=== PATIENT | male | born 1990 | race African-American/Black ===

== ENCOUNTER 2016-06-21 02:52 | Emergency (ER) | payer SELFPAY ==
[~2016-06-21] VITALS: Ht 167.6 cm; Wt 68.2 kg
[~2016-06-21 02:52] MED LIST: CEPHALEXIN500 M1 PO; FLEXERIL 1010 MG/TAB PO; LORTAB 5/500 501 TAB PO; NAPROSYN500 MG PO; NO HOME MEDICATIONS; NORCO 325 MG-51 TAB PO; TYLENOL W/COD1 UDTAB PO; VOLTAREN 75 DR75 MG PO
[2016-06-21 02:55] VITALS: TEMP 99.8
[2016-06-21] MEDS ORDERED: VOLTAREN 75 DR75 MG PO (04:11)
[2016-06-21] MEDS ORDERED: CEPHALEXIN500 M1 PO (04:11)
[2016-06-21 04:39] VITALS: BP 129/88; PULSE 88
== END 2016-06-21 04:40 | disposition home or self-care (01) ==
LOC: COL.ER 02:52
DX: S61.411A Laceration without foreign body of right hand, initial encounter (principal); Z23 Encounter for immunization; W22.8XXA Striking against or struck by other objects, initial encounter; Y92.414 Local residential or business street as the place of occurrence of the external cause

== ENCOUNTER 2016-06-25 17:33 | Emergency (ER) | payer SELFPAY ==
[~2016-06-25] VITALS: Ht 172.7 cm; Wt 68.2 kg
[2016-06-25 17:36] VITALS: BP 125/82; PULSE 88; TEMP 97.5
== END 2016-06-25 18:20 | disposition home or self-care (01) ==
LOC: COL.ER 17:33
DX: S61.411D Laceration without foreign body of right hand, subsequent encounter (principal)

== ENCOUNTER 2016-07-01 20:50 | Emergency (ER) | payer SELFPAY ==
[2016-07-01 20:58] VITALS: BP 123/86; PULSE 63; TEMP 98.9
== END 2016-07-01 21:06 | disposition home or self-care (01) ==
LOC: COL.ER 20:50
DX: Z48.02 Encounter for removal of sutures (principal)

== ENCOUNTER 2016-11-17 20:08 | Emergency (ER) | payer SELFPAY ==
[~2016-11-17] VITALS: Ht 170.2 cm; Wt 73.6 kg
[2016-11-17 20:10] VITALS: TEMP 97.7
[2016-11-17] MEDS ORDERED: ULTRAM 50MG TAB50 MG PO (20:49)
[2016-11-17 21:00] VITALS: BP 132/90; PULSE 72
== END 2016-11-17 21:09 | disposition home or self-care (01) ==
LOC: COL.ER 20:08
DX: S31.000D Unspecified open wound of lower back and pelvis without penetration into retroperitoneum, subsequent encounter (principal); W39.XXXD Discharge of firework, subsequent encounter

== ENCOUNTER 2019-04-26 13:41 | Emergency (ER) | payer SELFPAY ==
[~2019-04-26] VITALS: Ht 170.2 cm; Wt 71.8 kg
[~2019-04-26 13:41] MED LIST changes: +ULTRAM 50MG TAB50 MG PO
[2019-04-26 13:55] VITALS: BP 118/92; TEMP 97.9
[2019-04-26] MEDS ORDERED: NORCO 325 MG-51 TAB PO (15:45)
[2019-04-26 16:10] VITALS: PULSE 72
== END 2019-04-26 16:15 | disposition home or self-care (01) ==
LOC: COL.ER 13:41
DX: S62.141A Displaced fracture of body of hamate [unciform] bone, right wrist, initial encounter for closed fracture (principal); S62.396A Other fracture of fifth metacarpal bone, right hand, initial encounter for closed fracture; W22.8XXA Striking against or struck by other objects, initial encounter; Y92.009 Unspecified place in unspecified non-institutional (private) residence as the place of occurrence of the external cause
CPT/HCPCS: Q4021

== ENCOUNTER 2019-05-17 17:48 | Emergency (ER) | payer SELFPAY ==
[~2019-05-17] VITALS: Ht 170.2 cm; Wt 72.7 kg
[2019-05-17 18:12] VITALS: BP 134/84; TEMP 98.5
[2019-05-17 19:30] VITALS: PULSE 95
== END 2019-05-17 19:30 | disposition home or self-care (01) ==
LOC: COL.ER 17:48
DX: M25.541 Pain in joints of right hand (principal); G89.18 Other acute postprocedural pain; Y92.009 Unspecified place in unspecified non-institutional (private) residence as the place of occurrence of the external cause
CPT/HCPCS: Q4021

== ENCOUNTER 2019-07-14 18:10 | Emergency (ER) | payer SELFPAY ==
[~2019-07-14] VITALS: Ht 172.7 cm; Wt 70.9 kg
[2019-07-14 18:27] VITALS: BP 129/88; PULSE 82; TEMP 98.2
[2019-07-14] MEDS ORDERED: TYLENOL W/COD1 UDTAB PO (18:33)
[2019-07-14] MEDS ORDERED: NORCO 325 MG-51 TAB PO (19:38)
== END 2019-07-14 19:56 | disposition home or self-care (01) ==
LOC: COL.ER 18:10
DX: M79.641 Pain in right hand (principal); Z87.828 Personal history of other (healed) physical injury and trauma

== ENCOUNTER 2020-07-30 19:02 | Emergency (ER) | payer SELFPAY ==
[~2020-07-30] VITALS: Ht 172.7 cm; Wt 73.2 kg
[2020-07-30 19:11] VITALS: TEMP 98.1
[2020-07-30] MEDS ORDERED: MEDROL 4MG DOSPA4 MG PO (20:15)
[2020-07-30] MEDS ORDERED: NORCO 325 MG-51 TAB PO (20:15)
[2020-07-30 20:45] VITALS: BP 124/70; PULSE 71
== END 2020-07-30 20:40 | disposition home or self-care (01) ==
LOC: COL.ER 19:02
DX: M19.041 Primary osteoarthritis, right hand (principal); F17.210 Nicotine dependence, cigarettes, uncomplicated
CPT/HCPCS: J7512

== ENCOUNTER 2022-10-03 18:40 | Emergency (ER) | payer SELFPAY ==
[~2022-10-03] VITALS: Ht 185.4 cm; Wt 70.5 kg
[~2022-10-03 18:40] MED LIST changes: +MEDROL 4MG DOSPA4 MG PO
[2022-10-03 18:45] VITALS: BP 116/73; PULSE 84; TEMP 98.2
== END 2022-10-03 19:25 | disposition home or self-care (01) ==
LOC: COL.ER 18:40
DX: Z47.89 Encounter for other orthopedic aftercare (principal); Z28.310 Unvaccinated for COVID-19